=== PATIENT | female | born 1940 | race Caucasian/White ===

== ENCOUNTER 2022-07-15 03:41 | Inpatient (IN) | payer MEDICARE, MEDICAID ==
[~2022-07-15] VITALS: Ht 157.5 cm; Wt 60.4 kg
[2022-07-15] VITALS (9 sets, daily range): BP systolic 125–150; BP diastolic 67–78
[~2022-07-15 03:41] MED LIST: ALEN70TA60 PO; CALC-1099; CHOL200013; CLOP75TA34 PO; LEVO100T PO; LOSA25TA96 PO; NEBI20TA2 PO; ONDA4TAB6 PO; UBID100C7 PO; VITA1TAB PO; ZET10T PO
[2022-07-15] MEDS ORDERED: nitroGLYCERIN 0.4mg/hour patch TD ONE (04:10)
[2022-07-15 04:19] LABS: BASOPHILS % (AUTO) 0.4 % (0-1); EOSINOPHILS # (AUTO) 0.1 X10'3 (0-0.9); EOSINOPHILS % (AUTO) 1.8 % (0-6); HEMATOCRIT 43.5 % (35.0-45.0); HEMOGLOBIN 14.6 g/dl (12.0-16.0); LYMPHOCYTES # (AUTO) 3.2 X10'3 (1.1-4.8); LYMPHOCYTES % (AUTO) 39.3 % (21-51); MEAN CORPUSCULAR HEMOGLOBIN 30.3 PG (27.0-31.0); MEAN CORPUSCULAR HGB CONC 33.5 g/dL (33.0-36.5); MEAN CORPUSCULAR VOLUME 90.6 FL (78-98); MEAN PLATELET VOLUME 8.3 FL (7.4-10.4); MONOCYTES % (AUTO) 11.8 % (2-12); NEUTROPHILS # (AUTO) 3.8 X10'3 (1.8-7.7); NEUTROPHILS % (AUTO) 46.7 % (42-75); PLATELET COUNT 206 X10'3 (140-440); RED CELL DISTRIBUTION WIDTH 13.4 % (11.5-14.5); WHITE BLOOD COUNT 8.1 X10'3 (4.5-11.0)
[2022-07-15 04:28] LABS: ALANINE AMINOTRANSFERASE 21 U/L (12-78); ALBUMIN 3.8 G/DL (3.4-5.0); ALBUMIN/GLOBULIN RATIO 1.1 (1.1-1.5); ALKALINE PHOSPHATASE 52 IU/L (46-116); ANION GAP 12 (8-16); ASPARTATE AMINO TRANSFERASE 16 U/L (10-37); BILIRUBIN,TOTAL 0.4 MG/DL (0.1-1.0); BLOOD UREA NITROGEN 32 MG/DL (7-18); CALCIUM 9.6 MG/DL (8.5-10.1); CHLORIDE 103 MMOL/L (99-107); GLUCOSE 134 MG/DL (70-104); POTASSIUM 3.7 MMOL/L (3.5-5.1); SODIUM 139 MMOL/L (135-145); TOTAL CARBON DIOXIDE 24.3 MMOL/L (24-32); TOTAL PROTEIN 7.4 G/DL (6.4-8.2); eGFR 69 ML/MIN
[2022-07-15] MEDS ORDERED: diphenhydrAMINE 50 mg/ml inj IV PRN (04:50)
[2022-07-15] MEDS ORDERED: magnesium hydroxide 30ml (MOM) UD suspension PO PRN (04:50)
[2022-07-15] MEDS ORDERED: bisacodyl 10mg suppository rectal RC PRN (04:50)
[2022-07-15] MEDS ORDERED: ondansetron/PF 4mg/2ml inj IV PRN (04:50)
[2022-07-15] MEDS ORDERED: diphenhydrAMINE 25mg capsule PO PRN (04:50)
[2022-07-15] MEDS ORDERED: mag hydrox/Alum hydrox/simeth 30ml oral suspension PO PRN (04:50)
[2022-07-15] MEDS ORDERED: normal saline 1000ml 1,000 ML IV SCH (04:50)
[2022-07-15] MEDS ORDERED: ondansetron 4mg rapidly disintigrating tab PO PRN (04:50)
[2022-07-15] MEDS ORDERED: MESSAGE TO PHARMACY PO ONE (05:00)
[2022-07-15] MEDS ORDERED: dextrose 50%-water 50ml dispensing syringe IV PRN ×2 (05:00)
[2022-07-15] MEDS ORDERED: nitroGLYCERIN 0.4mg SUBLingual tab SL PRN (05:00)
[2022-07-15] MEDS ORDERED: regadenoson 0.4mg/5ml syringe IV PRN (05:00)
[2022-07-15] MEDS ORDERED: metoprolol tartrate 1mg/ml inj IV PRN (05:00)
[2022-07-15] MEDS ORDERED: aminophylline 500mg/20ml vial IV PRN (05:00)
[2022-07-15] MEDS ORDERED: glucagon, human recombinant 1mg kit SUBCUT PRN (05:00)
[2022-07-15] MEDS ORDERED: DEXTROSE 15 GM of carb/4 tabs (each vial/BOTTLE has 4 tablets) PO PRN ×2 (05:00)
[2022-07-15] MEDS ORDERED: insulin Lispro (HumaLOG) vial - multi-dose SQ SCH (05:00)
[2022-07-15] MEDS ORDERED: METF-900 PO (05:16)
[2022-07-15] MEDS ORDERED: LEVO88TA2 PO (05:16)
[2022-07-15] MEDS ORDERED: DILT-36 PO (05:16)
[2022-07-15] MEDS ORDERED: FLUC200T93 PO (05:16)
[2022-07-15] MEDS ORDERED: DAPA10TA PO (05:16)
[2022-07-15] MEDS ORDERED: TOLT2CAP21 PO (05:16)
[2022-07-15] MEDS ORDERED: POTA-188 PO (05:16)
[2022-07-15] MEDS ORDERED: ALEN70TA80 PO (05:16)
[2022-07-15] MEDS ORDERED: FURO20TA4 PO (05:16)
[2022-07-15] MEDS ORDERED: APIX2.5T PO (05:16)
[2022-07-15] MEDS ORDERED: ATOR20TA66 PO (05:16)
[2022-07-15] MEDS ORDERED: CHOL100046 PO (05:16)
[2022-07-15 05:39] LABS: APTT 30 SECONDS (22-32); D-DIMER 0.59 MG/L FEU (0-0.50)
[2022-07-15 05:46] LABS: HEMOGLOBIN A1C 6.2 % (4.5-6.2)
[2022-07-15 06:26] LABS: MAGNESIUM 2.2 MG/DL (1.5-2.4); PHOSPHORUS 3.5 MG/DL (2.3-4.5)
[2022-07-15] MEDS: pantoprazole 40mg Tablet.DR PO SCH (06:59)
[2022-07-15 07:00] LABS: CHOL/HDL RATIO 2.2 (0.00-4.99); CHOLESTEROL 111 MG/DL (0-200); CREATINE KINASE 34 U/L (26-192); HDL CHOLESTEROL 50 MG/DL (35-60); LDL CHOLESTEROL 43 MG/DL (50-100); TRIGLYCERIDES 190 MG/DL (20-135)
[2022-07-15] MEDS: docusate sod 100mg capsule PO SCH ×2 (07:00→19:42)
[2022-07-15] MEDS ORDERED: heparin, porcine 5000 units/ml vial SQ SCH (08:00)
[2022-07-15] MEDS ORDERED: magnesium 4gm in 100ml NS 100 ML IV PRN (08:45)
[2022-07-15] MEDS ORDERED: potassium Cl 20 mEq SR tablet PO PRN ×2 (08:45)
[2022-07-15] MEDS ORDERED: magnesium Cl slow-release 64mg tablet PO PRN (08:45)
[2022-07-15] MEDS ORDERED: potassium Cl 40MEQ/1/2NS 520ml 520 ML IV PRN (08:45)
[2022-07-15] MEDS ORDERED: PERFLUTREN PROTEIN-A MICROSPHR (Optison) 0.22 MG/ML 3ML VIAL IV ONE (08:50)
[2022-07-15] MEDS ORDERED: non-formulary drug (Alendronate Sodium 1 TAB) PO SCH (08:50)
[2022-07-15] MEDS: furosemide 20MG tablet PO SCH (09:16)
[2022-07-15] MEDS: diltiazem CD 180mg cap (once-daily) PO SCH (09:35)
[2022-07-15] MEDS: atorvastatin 20mg tablet PO SCH (09:35)
[2022-07-15] MEDS: ezetimibe 10mg tablet PO SCH (09:36)
[2022-07-15] MEDS: K and/or MAG REPLACEMENT MC SCH (19:42)
[2022-07-15] MEDS ORDERED: Melatonin 3mg tablet PO PRN (19:55)
[2022-07-15] MEDS: apixaban 2.5mg tablet PO SCH (20:02)
[2022-07-15] MEDS: acetaminophen 325mg tablet PO PRN (20:02)
[2022-07-15] MEDS ORDERED: temazepam 15mg capsule PO PRN (21:00)
[2022-07-16] MEDS: acetaminophen 325mg tablet PO PRN (02:35)
[2022-07-16 05:52] LABS: BASOPHILS # (AUTO) 0.1 X10'3 (0-0.2); BASOPHILS % (AUTO) 0.8 % (0-1); EOSINOPHILS # (AUTO) 0.2 X10'3 (0-0.9); EOSINOPHILS % (AUTO) 2.5 % (0-6); HEMATOCRIT 42.3 % (35.0-45.0); HEMOGLOBIN 14.4 g/dl (12.0-16.0); MEAN CORPUSCULAR HEMOGLOBIN 30.7 PG (27.0-31.0); MEAN CORPUSCULAR HGB CONC 33.9 g/dL (33.0-36.5); MEAN CORPUSCULAR VOLUME 90.6 FL (78-98); MEAN PLATELET VOLUME 7.9 FL (7.4-10.4); MONOCYTES # (AUTO) 0.8 X10'3 (0-0.9); MONOCYTES % (AUTO) 11.1 % (2-12); NEUTROPHILS # (AUTO) 3.2 X10'3 (1.8-7.7); NEUTROPHILS % (AUTO) 43.6 % (42-75); PLATELET COUNT 197 X10'3 (140-440); RED BLOOD COUNT 4.67 X10'6 (4.20-5.60); RED CELL DISTRIBUTION WIDTH 13.6 % (11.5-14.5); WHITE BLOOD COUNT 7.2 X10'3 (4.5-11.0)
[2022-07-16 06:00] VITALS: BP 128/62
[2022-07-16 06:16] LABS: ALANINE AMINOTRANSFERASE 21 U/L (12-78); ALBUMIN 3.3 G/DL (3.4-5.0); ALBUMIN/GLOBULIN RATIO 0.9 (1.1-1.5); ALKALINE PHOSPHATASE 45 IU/L (46-116); ANION GAP 9 (8-16); ASPARTATE AMINO TRANSFERASE 22 U/L (10-37); BILIRUBIN,TOTAL 0.3 MG/DL (0.1-1.0); BLOOD UREA NITROGEN 25 MG/DL (7-18); BUN/CREATININE RATIO 34.2 (6.6-38.0); CALCIUM 8.9 MG/DL (8.5-10.1); CHLORIDE 106 MMOL/L (99-107); CHOL/HDL RATIO 2.1 (0.00-4.99); CHOLESTEROL 127 MG/DL (0-200); CREATININE 0.73 MG/DL (0.40-0.90); GLUCOSE 109 MG/DL (70-104); HDL CHOLESTEROL 60 MG/DL (35-60); LDL CHOLESTEROL 50 MG/DL (50-100); MAGNESIUM 2.5 MG/DL (1.5-2.4); PHOSPHORUS 4.3 MG/DL (2.3-4.5); POTASSIUM 3.9 MMOL/L (3.5-5.1); SODIUM 136 MMOL/L (135-145); TOTAL CARBON DIOXIDE 20.8 MMOL/L (24-32); TOTAL PROTEIN 6.9 G/DL (6.4-8.2); TRIGLYCERIDES 159 MG/DL (20-135); eGFR 76 ML/MIN
--- NOTE | 2022-07-16 06:35 | NUR ---
Patient in room [facility]. I have received report from CHELSEY Snyder and had the opportunity to ask questions and assume patient care.
[2022-07-16] MEDS: pantoprazole 40mg Tablet.DR PO SCH (06:59)
[2022-07-16] MEDS ORDERED: levoTHYROXINE 88mcg tablet PO SCH (07:00)
[2022-07-16] MEDS: K and/or MAG REPLACEMENT MC SCH (07:38)
[2022-07-16] MEDS: docusate sod 100mg capsule PO SCH (07:46)
[2022-07-16] MEDS: ezetimibe 10mg tablet PO SCH (07:47)
[2022-07-16] MEDS: diltiazem CD 180mg cap (once-daily) PO SCH (07:48)
[2022-07-16] MEDS: furosemide 20MG tablet PO SCH (07:48)
[2022-07-16] MEDS: apixaban 2.5mg tablet PO SCH (07:48)
[2022-07-16] MEDS: atorvastatin 20mg tablet PO SCH (07:49)
[2022-07-16] MEDS ORDERED: VITAMIN B COMPLEX PO SCH (08:00)
[2022-07-16] MEDS ORDERED: fluconazole 100mg tablet PO SCH (08:00)
[2022-07-16] MEDS ORDERED: oxybutynin 5mg tablet PO SCH (08:00)
--- NOTE | 2022-07-16 09:06 | NUR ---
DM Consult: Pt hx DM A1C 6.2% per EMR; A1C appropriate given age. Addendum: 07/16/22 at [address] Amended: Links added.
[2022-07-16] MEDS ORDERED: iohexol 350MG/ML 100ml bottle IV ONE (10:34)
[2022-07-16 11:00] VITALS: BP 110/63
[2022-07-16] MEDS ORDERED: PANT-47 PO (12:20)
--- NOTE | 2022-07-16 14:50 | NUR ---
Patient discharge home with family. Discharge information was review with patient, whom verbalize understanding. Staff assist patient to personal vehicle with all belongings.
--- NOTE | 2022-07-24 10:53 | NUR ---
Case Management DC follow up: Spoke with via telephone. S/P: Patient Reports:. Denies Acute/continuous C/P at the time of the call; however, verbalizes she continues to have C/P since DC from hospital. Verbalizes with each incident of C/P the pain has been 10 out of pain scale of one - ten.Verbalizes each incident of C/P pain had been sharp/pressure in the middle of her chest with pain radiating down left arm, and below the back of her neck.Verbalizes she did not call 05-05 because she was just in the hospital for same complaint and after test she was told it was not her Heart.I told Patient to call 11 if she has C/P, not to wait, and not to worry about previous hospital stay. Verbalizes she called to office and had the appointment 08/22/22.Verbalized she was prescribed N.T.G. and plan for a heart cath. Reiterated need to call 05-05 if C/P does not resolve with second N.T.G. Denies: emergent SOB, resp distress, dyspnea.Verbalizes she requires two pillows to sleep at night.Denies: N/V, weakness, vertigo, syncope episodes, orthostatic hypotension, VILLALTA, blurry vision, s/s of stroke/BE-FAST, dysphagia, dysuria, hematuria, abdominal pain/distention, hematochezia, melena, unexplained bruising, bleeding, fever, chills , diaphoresis. Verbalizes understanding of new RX: why prescribed;continues/resumes current Rx as ordered.Verbalizes understanding of s/s that warrant a 05-05/ER visit for further evaluation. Verbalizes she had very good care while in the hospital. Needs met, questions/concerns addressed at DC; no further questions/concerns regarding recent hospital stay and/or DC status at this time.
== END 2022-07-16 14:16 | disposition home or self-care (01) | DRG 392 ==
LOC: ER 03:41 → ED HOLD 04:51 → SUR 3N 20:27
PROVIDERS: ADMIT Family Medicine; ATTEND Family Medicine
PROC: 4A02XM4 Measurement of Cardiac Total Activity, External Approach (ICD-10-PCS; principal; 2022-07-15)
PROC: 3E033HZ Introduction of Radioactive Substance into Peripheral Vein, Percutaneous Approach (ICD-10-PCS; 2022-07-15)
PROC: B32T1ZZ Computerized Tomography (CT Scan) of Left Pulmonary Artery using Low Osmolar Contrast (ICD-10-PCS; 2022-07-16)
PROC: B3201ZZ Computerized Tomography (CT Scan) of Thoracic Aorta using Low Osmolar Contrast (ICD-10-PCS; 2022-07-16)
PROC: B32S1ZZ Computerized Tomography (CT Scan) of Right Pulmonary Artery using Low Osmolar Contrast (ICD-10-PCS; 2022-07-16)
DX: K21.9 Gastro-esophageal reflux disease without esophagitis (principal); I20.0 Unstable angina; I13.0 Hypertensive heart and chronic kidney disease with heart failure and stage 1 through stage 4 chronic kidney disease, or unspecified chronic kidney disease; I50.32 Chronic diastolic (congestive) heart failure; R07.89 Other chest pain; I48.91 Unspecified atrial fibrillation; E11.22 Type 2 diabetes mellitus with diabetic chronic kidney disease; E11.65 Type 2 diabetes mellitus with hyperglycemia; N18.9 Chronic kidney disease, unspecified; E03.9 Hypothyroidism, unspecified; E78.5 Hyperlipidemia, unspecified; Z79.02 Long term (current) use of antithrombotics/antiplatelets; Z88.6 Allergy status to analgesic agent; Z88.0 Allergy status to penicillin; Z88.5 Allergy status to narcotic agent; Z88.8 Allergy status to other drugs, medicaments and biological substances; Z90.49 Acquired absence of other specified parts of digestive tract; Z79.899 Other long term (current) drug therapy
CPT/HCPCS: 36415; 71045; 71275; 78451; 80053; 80061; 82550; 82948; 83036; 83735; 83880; 84100; 84443; 84484; 85025; 85379; 85610; 85730; 87081; 93005; 93017; 93308; 99285; A9500; G0378; J1644; J1815; J2785; J3490; J7030; Q9967

== ENCOUNTER 2022-08-07 13:55 | Day surgery (SDC) | payer MEDICARE, MEDICAID ==
[2022-08-01 09:22] LABS: BASOPHILS % (AUTO) 0.5 % (0-1); EOSINOPHILS # (AUTO) 0.2 X10'3 (0-0.9); EOSINOPHILS % (AUTO) 2.3 % (0-6); HEMATOCRIT 44.9 % (35.0-45.0); HEMOGLOBIN 15.2 g/dl (12.0-16.0); LYMPHOCYTES # (AUTO) 2.4 X10'3 (1.1-4.8); LYMPHOCYTES % (AUTO) 32.4 % (21-51); MEAN CORPUSCULAR HEMOGLOBIN 30.3 PG (27.0-31.0); MEAN CORPUSCULAR HGB CONC 33.8 g/dL (33.0-36.5); MEAN CORPUSCULAR VOLUME 89.7 FL (78-98); MEAN PLATELET VOLUME 8.2 FL (7.4-10.4); MONOCYTES # (AUTO) 0.7 X10'3 (0-0.9); MONOCYTES % (AUTO) 10.1 % (2-12); NEUTROPHILS % (AUTO) 54.7 % (42-75); PLATELET COUNT 234 X10'3 (140-440); RED BLOOD COUNT 5.01 X10'6 (4.20-5.60); RED CELL DISTRIBUTION WIDTH 13.6 % (11.5-14.5); WHITE BLOOD COUNT 7.3 X10'3 (4.5-11.0)
[2022-08-01 09:36] LABS: APTT 29 SECONDS (22-32)
[2022-08-01 09:41] LABS: ALBUMIN 3.9 G/DL (3.4-5.0); ANION GAP 8 (8-16); BLOOD UREA NITROGEN 14 MG/DL (7-18); BUN/CREATININE RATIO 20.9 (6.6-38.0); CALCIUM 9.3 MG/DL (8.5-10.1); CHLORIDE 104 MMOL/L (99-107); CHOL/HDL RATIO 1.9 (0.00-4.99); CHOLESTEROL 153 MG/DL (0-200); CREATININE 0.67 MG/DL (0.40-0.90); GLUCOSE 127 MG/DL (70-104); HDL CHOLESTEROL 80 MG/DL (35-60); LDL CHOLESTEROL 53 MG/DL (50-100); POTASSIUM 3.2 MMOL/L (3.5-5.1); SODIUM 141 MMOL/L (135-145); TOTAL CARBON DIOXIDE 29.5 MMOL/L (24-32); TRIGLYCERIDES 114 MG/DL (20-135); eGFR 84 ML/MIN
[~2022-08-07] VITALS: Ht 157.5 cm; Wt 60.7 kg
[2022-08-07] VITALS (9 sets, daily range): BP systolic 131–148; BP diastolic 72–87
[~2022-08-07 13:55] MED LIST changes: -ALEN70TA60 PO; +ALEN70TA80 PO; +APIX2.5T PO; +ATOR20TA66 PO; -CALC-1099; +CHOL100046 PO; -CHOL200013; -CLOP75TA34 PO; +DAPA10TA PO; +DILT-36 PO; +FLUC200T93 PO; +FURO20TA4 PO; -LEVO100T PO; +LEVO88TA2 PO; -LOSA25TA96 PO; +METF-900 PO; -NEBI20TA2 PO; -ONDA4TAB6 PO; +PANT-47 PO; +POTA-188 PO; +TOLT2CAP21 PO
[2022-08-07] MEDS ORDERED: diphenhydrAMINE 25mg capsule PO PRN (14:15)
[2022-08-07] MEDS ORDERED: LORazepam 0.5 MG tablet PO PRN (14:15)
[2022-08-07] MEDS ORDERED: normal saline 1,000 ML IV SCH (14:15)
[2022-08-07] MEDS ORDERED: iohexol 350MG/ML 100ml bottle IV ONE (15:16)
[2022-08-07] MEDS ORDERED: heparin 1,000unit/ml 10ml vial 10 ML ONE (15:16)
[2022-08-07] MEDS ORDERED: nitroGLYCERIN-Tridil 50MG/D5W 250 ML IV ONE (15:16)
[2022-08-07] MEDS ORDERED: verapamil 2.5 mg/ml inj IV ONE (15:16)
[2022-08-07] MEDS ORDERED: LIDOcaine 1% (10mg/ml) 2ml vial ONE (15:17)
[2022-08-07] MEDS ORDERED: midazolam 1 mg/ML 2ml injection ONE (16:02)
[2022-08-07] MEDS ORDERED: FENTANYL CITRATE/PF 50 MCG/1 ML VIAL ONE (16:02)
[2022-08-07] MEDS ORDERED: NITR0.4T51 SL (16:15)
[2022-08-07] MEDS ORDERED: [UNRECOGNIZED DRUG - CODE] PO (16:15)
[2022-08-07] MEDS ORDERED: SUCR1TAB34 PO (16:15)
[2022-08-07] MEDS ORDERED: DILT120T3 PO (16:15)
[2022-08-07] MEDS ORDERED: CYAN100T24 PO (16:15)
[2022-08-07] MEDS ORDERED: clopidogrel 300mg tablet ONE (16:36)
== END 2022-08-07 18:55 | disposition home or self-care (01) ==
LOC: SSTAY O 13:55
PROVIDERS: ATTEND Student in an Organized Health Care Education/Training Program
DX: R07.9 Chest pain, unspecified (principal); I25.10 Atherosclerotic heart disease of native coronary artery without angina pectoris; I10 Essential (primary) hypertension; E78.5 Hyperlipidemia, unspecified; I48.91 Unspecified atrial fibrillation; I11.0 Hypertensive heart disease with heart failure; I50.9 Heart failure, unspecified; M19.90 Unspecified osteoarthritis, unspecified site; I48.0 Paroxysmal atrial fibrillation; Z88.0 Allergy status to penicillin; Z88.2 Allergy status to sulfonamides; Z88.6 Allergy status to analgesic agent; Z79.899 Other long term (current) drug therapy; Z98.890 Other specified postprocedural states
CPT/HCPCS: 36415; 80048; 80061; 82948; 85025; 85610; 85730; 93005; 93458; 99152; A6258; C1751; C1769; J1644; J2250; J3010; J3490; J7030; Q0163; Q9967; 99153; A6402

== ENCOUNTER 2022-08-29 14:32 | Emergency (ER) | payer MEDICARE, MEDICAID ==
[~2022-08-29] VITALS: Ht 157.5 cm; Wt 59.5 kg
[~2022-08-29 14:32] MED LIST changes: +CYAN100T24 PO; -DILT-36 PO; +DILT120T3 PO; -FLUC200T93 PO; +NITR0.4T51 SL; -PANT-47 PO; +SUCR1TAB34 PO; -UBID100C7 PO; -VITA1TAB PO; +[UNRECOGNIZED DRUG - CODE] PO
[2022-08-29 15:21] LABS: BASOPHILS % (AUTO) 0.4 % (0-1); EOSINOPHILS # (AUTO) 0.1 X10'3 (0-0.9); EOSINOPHILS % (AUTO) 1.3 % (0-6); HEMATOCRIT 40.5 % (35.0-45.0); HEMOGLOBIN 13.7 g/dl (12.0-16.0); LYMPHOCYTES % (AUTO) 36.9 % (21-51); MEAN CORPUSCULAR HEMOGLOBIN 30.3 PG (27.0-31.0); MEAN CORPUSCULAR HGB CONC 33.8 g/dL (33.0-36.5); MEAN CORPUSCULAR VOLUME 89.7 FL (78-98); MEAN PLATELET VOLUME 8.2 FL (7.4-10.4); MONOCYTES # (AUTO) 0.9 X10'3 (0-0.9); MONOCYTES % (AUTO) 10.7 % (2-12); NEUTROPHILS # (AUTO) 4.2 X10'3 (1.8-7.7); NEUTROPHILS % (AUTO) 50.7 % (42-75); PLATELET COUNT 220 X10'3 (140-440); RED BLOOD COUNT 4.52 X10'6 (4.20-5.60); RED CELL DISTRIBUTION WIDTH 13.7 % (11.5-14.5); WHITE BLOOD COUNT 8.2 X10'3 (4.5-11.0)
[2022-08-29 15:34] LABS: ALANINE AMINOTRANSFERASE 26 U/L (12-78); ALBUMIN 3.7 G/DL (3.4-5.0); ALBUMIN/GLOBULIN RATIO 1.1 (1.1-1.5); ALKALINE PHOSPHATASE 50 IU/L (46-116); ANION GAP 17 (8-16); ASPARTATE AMINO TRANSFERASE 16 U/L (10-37); BILIRUBIN,TOTAL 0.4 MG/DL (0.1-1.0); BLOOD UREA NITROGEN 27 MG/DL (7-18); BUN/CREATININE RATIO 30.3 (6.6-38.0); CALCIUM 9.3 MG/DL (8.5-10.1); CHLORIDE 102 MMOL/L (99-107); CREATININE 0.89 MG/DL (0.40-0.90); GLUCOSE 99 MG/DL (70-104); POTASSIUM 3.1 MMOL/L (3.5-5.1); SODIUM 139 MMOL/L (135-145); TOTAL CARBON DIOXIDE 19.9 MMOL/L (24-32); eGFR 61 ML/MIN
--- NOTE | 2022-08-29 15:34 | NUR ---
Pt states that she has been SOB since this morning
[2022-08-29 17:03] VITALS: BP 112/62
== END 2022-08-29 17:05 | disposition home or self-care (01) ==
LOC: ER 14:33
DX: E86.0 Dehydration (principal); R07.9 Chest pain, unspecified; R06.02 Shortness of breath; I11.9 Hypertensive heart disease without heart failure; E11.9 Type 2 diabetes mellitus without complications; E03.9 Hypothyroidism, unspecified; Z90.49 Acquired absence of other specified parts of digestive tract; Z88.1 Allergy status to other antibiotic agents; Z88.2 Allergy status to sulfonamides; Z91.012 Allergy to eggs; Z91.010 Allergy to peanuts; Z91.018 Allergy to other foods; Z88.6 Allergy status to analgesic agent; Z88.5 Allergy status to narcotic agent
CPT/HCPCS: 36415; 71045; 80053; 83880; 84484; 85025; 93005; 99285